=== PATIENT | male | born 1950 | race African-American/Black ===

== ENCOUNTER 2020-06-16 23:12 | Observation (INO) ==
[2020-06-17 00:46] LABS: Basophils % 0.4 % (0.0-0.8); Eosinophils # 0.1 10*3/uL (0.0-0.87); Eosinophils % 2.4 % (0.00-10.9); Hemoglobin 9.8 GM/DL (14.0-18.0); Immature Granulocytes % 0.2 %; Immature Granulocytes Absolute 0.01 #; Lymphocytes # 0.6 10*3/uL (1.4-4.0); Lymphocytes % 13.7 % (21.2-54.2); Mean Corpuscular HGB Conc 32.7 GM/DL (32-36); Mean Corpuscular Volume 78.3 FL (87-102); Mean Platelet Volume 11.5 FL (9.6-12.0); Monocytes % 13.3 % (1.7-12.7); NRBC # 0.03 10*3/uL; Platelet Count 211 T/CUMM (130-400); Red Blood Count 3.83 MC/CUMM (3.8-5.5); Red Cell Distribution Width 15.9 % (9.3-17.3); White Blood Count 4.7 T/CUMM (4-12)
[2020-06-17 00:54] LABS: PT Patient Result 10.6 SECS (9.8-11.9); Partial Thromboplastin Time 27.4 SECS (23.9-33.8)
[2020-06-17 01:01] LABS: Alanine Aminotransferase 27 U/L (16-61); Albumin 3.6 G/DL (3.4-5.0); Alkaline Phosphatase 91 U/L (45-117); Aspartate Amino Transferase 26 U/L (0-37); Bilirubin,Total < 0.39 MG/DL (0.2-1.0); Blood Urea Nitrogen 17 MG/DL (7-18); Calcium 9.1 MG/DL (8.5-10.1); Estimated Glom Filtration Rate 61 ML/MIN; Glucose 134 MG/DL (74-106); Osmolality,Calculated 273.1 MOS/KG (273-304); Total Protein 7.7 G/DL (6.4-8.3)
[2020-06-17] MEDS ORDERED: PANTOPRAZOLE 40 MG VIAL IV STA (01:35)
[2020-06-17] MEDS ORDERED: ONDANSETRON 4 MG/2 ML VIAL IV STA (01:35)
[2020-06-17] MEDS ORDERED: ALUM/MAG/SIMETH/LIDO VISC 1:1 30 ML BOTTLE PO STA (01:35)
[2020-06-17] MEDS ORDERED: MAGNESIUM SULF RIDER 2 GM in PREMIX 1 EACH IV STA (02:13)
[2020-06-17 04:13] LABS: Bilirubin,Urine Negative (Negative); Blood, Urine Negative (Negative); Glucose,Urine (UA) Negative (Negative); Ketones,Urine Negative (Negative); Nitrite,Urine Negative (Negative); Protein,Urine 30 MG/DL; RBC,Urine 2 /HPF (0-4); Squamous Epithelial Cell,Urine Occasional /HPF (0-10); Urine Appearance CLEAR (Clear); Urine Color Colorless (Yellow); Urine Specific Gravity 1.018 (1.001-1.035); Urine Urobilinogen < 2.0 EU/DL (0.2-1.0); WBC,Urine 1 /HPF (0-6)
[2020-06-17] MEDS ORDERED: GLUCAGON 1 MG VIAL IM PRN (05:04)
[2020-06-17] MEDS ORDERED: DOCUSATE SODIUM 100 MG CAPSULE PO PRN (05:04)
[2020-06-17] MEDS ORDERED: ONDANSETRON 4 MG/2 ML VIAL IV PRN (05:04)
[2020-06-17] MEDS ORDERED: DEXTROSE 50% 25 GM/50 ML VIAL IV PRN (05:04)
[2020-06-17] MEDS ORDERED: NICOTINE 21 MG/24 HR PATCH TRANSDERM PRN (05:04)
[2020-06-17] MEDS ORDERED: hydrALAZINE 20 MG/1 ML VIAL IV PRN (05:04)
[2020-06-17] MEDS ORDERED: MORPHINE 4 MG/1 ML VIAL IV PRN (05:04)
[2020-06-17] MEDS ORDERED: ALBUTEROL/IPRATROPIUM 3 ML NEB RESP TX PRN (05:04)
[2020-06-17] MEDS ORDERED: ACETAMINOPHEN 325 MG TABLET PO PRN (05:04)
[2020-06-17] MEDS ORDERED: cefTRIAXone 1,000 MG in SYRINGE 1 EACH IV SCH (05:30)
[2020-06-17] MEDS ORDERED: AZITHROMYCIN INJ 500 MG in SODIUM CHLORIDE 0.9% 250 ML IV SCH (05:30)
[2020-06-17] MEDS ORDERED: NITROGLYCERIN SL 0.4 MG TABLET SL PRN (05:35)
[2020-06-17 06:48] LABS: Risk Ratio 3.04; VLDL CHOLESTEROL 52.8 MG/DL
[2020-06-17] MEDS ORDERED: INFLUENZA VIRUS VACCINE 0.5 ML SYRINGE IM ONE (08:18)
[2020-06-17] MEDS: INSULIN LISPRO 100 UNIT/ML SUBCUT SCH ×4 (08:30→23:15)
[2020-06-17] MEDS: AZITHROMYCIN 250 MG TABLET PO SCH (11:03)
[2020-06-17] MEDS: PANTOPRAZOLE 40 MG TABLET PO SCH (11:03)
[2020-06-17] MEDS: amLODIPine 10 MG TABLET PO SCH (11:04)
[2020-06-17] MEDS: CHLORTHALIDONE 25 MG TABLET PO SCH (11:04)
[2020-06-17] MEDS: carvediloL 3.125 MG TABLET PO SCH ×2 (11:04→21:08)
[2020-06-17] MEDS: cefTRIAXone 1,000 MG in SYRINGE 1 EACH IV SCH (11:05)
[2020-06-18 06:07] LABS: Basophils % 0.4 % (0.0-0.8); Eosinophils # 0.1 10*3/uL (0.0-0.87); Eosinophils % 1.9 % (0.00-10.9); Hematocrit 27.5 VOL% (42.0-52.0); Hemoglobin 8.7 GM/DL (14.0-18.0); Immature Granulocytes % 0.2 %; Immature Granulocytes Absolute 0.01 #; Lymphocytes # 0.4 10*3/uL (1.4-4.0); Lymphocytes % 6.1 % (21.2-54.2); Mean Corpuscular HGB Conc 31.6 GM/DL (32-36); Mean Corpuscular Volume 79.3 FL (87-102); Monocytes % 9.6 % (1.7-12.7); Neutrophils % 81.8 % (38.7-73.9); Platelet Count 191 T/CUMM (130-400); Red Blood Count 3.47 MC/CUMM (3.8-5.5); Red Cell Distribution Width 15.7 % (9.3-17.3); White Blood Count 5.7 T/CUMM (4-12)
[2020-06-18 06:42] LABS: Bilirubin,Total 0.7 MG/DL (0.2-1.0); Calcium 8.6 MG/DL (8.5-10.1); Osmolality,Calculated 282.3 MOS/KG (273-304); Thyroid Stimulating Hormone 1.62 uIU/ml (0.358-3.74); Total Protein 6.9 G/DL (6.4-8.3)
[2020-06-18] MEDS: INSULIN LISPRO 100 UNIT/ML SUBCUT SCH (07:22)
[2020-06-18] MEDS: AZITHROMYCIN 250 MG TABLET PO SCH (09:12)
[2020-06-18] MEDS: PANTOPRAZOLE 40 MG TABLET PO SCH (09:12)
[2020-06-18] MEDS: amLODIPine 10 MG TABLET PO SCH (09:12)
[2020-06-18] MEDS: cefTRIAXone 1,000 MG in SYRINGE 1 EACH IV SCH (09:13)
[2020-06-18] MEDS: carvediloL 3.125 MG TABLET PO SCH (09:13)
[2020-06-18] MEDS: CHLORTHALIDONE 25 MG TABLET PO SCH (09:13)
[2020-06-18] MEDS ORDERED: ASPIRIN EC 81 MG TABLET PO SCH (10:50)
[2020-06-18 11:23] VITALS: BP 156/79
== END 2020-06-18 12:09 | disposition home or self-care (01) ==
LOC: N.ED 23:12 → N.EDINP 23:12 → N.TELES 06-17 07:45
PROVIDERS: ADMIT Family Medicine; ATTEND Family Medicine

== ENCOUNTER 2020-07-01 22:27 | Observation (INO) ==
[2020-07-01] MEDS ORDERED: ASPIRIN 325 MG TABLET PO STA (22:50)
[2020-07-01 23:07] LABS: Basophils % 0.8 % (0.0-0.8); Eosinophils # 0.1 10*3/uL (0.0-0.87); Hematocrit 29.4 VOL% (42.0-52.0); Hemoglobin 9.6 GM/DL (14.0-18.0); Immature Granulocytes % 0.2 %; Immature Granulocytes Absolute 0.01 #; Lymphocytes # 1.3 10*3/uL (1.4-4.0); Lymphocytes % 24.1 % (21.2-54.2); Mean Corpuscular HGB Conc 32.7 GM/DL (32-36); Mean Corpuscular Volume 78.6 FL (87-102); Mean Platelet Volume 10.5 FL (9.6-12.0); Monocytes % 9.5 % (1.7-12.7); NRBC # 0.02 10*3/uL; Neutrophils % 64.4 % (38.7-73.9); Platelet Count 220 T/CUMM (130-400); Red Blood Count 3.74 MC/CUMM (3.8-5.5); Red Cell Distribution Width 16.6 % (9.3-17.3); White Blood Count 5.2 T/CUMM (4-12)
[2020-07-01 23:36] LABS: Alanine Aminotransferase 49 U/L (16-61); Albumin 3.3 G/DL (3.4-5.0); Alkaline Phosphatase 72 U/L (45-117); Aspartate Amino Transferase 90 U/L (0-37); Bilirubin,Total < 0.39 MG/DL (0.2-1.0); Blood Urea Nitrogen 28 MG/DL (7-18); Calcium 8.2 MG/DL (8.5-10.1); Estimated Glom Filtration Rate 71 ML/MIN; Glucose 81 MG/DL (74-106); Total Protein 7.2 G/DL (6.4-8.3)
[2020-07-01] MEDS ORDERED: ASPIRIN EC 325 MG TABLET PO STA (23:39)
[2020-07-01] MEDS ORDERED: NITROGLYCERIN SL 0.4 MG TABLET SL STA (23:39)
[2020-07-01 23:43] LABS: PT Patient Result 10.7 SECS (9.8-11.9)
[2020-07-01] MEDS ORDERED: HALOPERIDOL 5 MG/ML AMP ONE (23:43)
[2020-07-02 00:21] LABS: Bacteria,Urine Occasional /HPF (Few); Bilirubin,Urine Negative (Negative); Blood, Urine Small mg/dL (Negative); Glucose,Urine (UA) Negative (Negative); Hyaline Casts,Urine 3 /LPF (0-3); Ketones,Urine Negative (Negative); Mucus,Urine Occasional /LPF (Occasional); Nitrite,Urine Negative (Negative); Protein,Urine 100 MG/DL; RBC,Urine 2 /HPF (0-4); Squamous Epithelial Cell,Urine Occasional /HPF (0-10); Urine Appearance CLEAR (Clear); Urine Color Yellow (Yellow); Urine Specific Gravity 1.014 (1.001-1.035); Urine Urobilinogen < 2.0 EU/DL (0.2-1.0); WBC,Urine 1 /HPF (0-6)
[2020-07-02] MEDS ORDERED: ONDANSETRON 4 MG/2 ML VIAL IV PRN (01:48)
[2020-07-02] MEDS ORDERED: DEXTROSE 50% 25 GM/50 ML VIAL IV PRN (01:48)
[2020-07-02] MEDS ORDERED: DOCUSATE SODIUM 100 MG CAPSULE PO PRN (01:48)
[2020-07-02] MEDS ORDERED: GLUCAGON 1 MG VIAL IM PRN (01:48)
[2020-07-02] MEDS ORDERED: MORPHINE 4 MG/1 ML VIAL IV PRN (01:48)
[2020-07-02] MEDS ORDERED: ACETAMINOPHEN 325 MG TABLET PO PRN (02:00)
[2020-07-02] MEDS ORDERED: NITROGLYCERIN SL 0.4 MG TABLET SL PRN ×2 (02:03→15:35)
[2020-07-02] MEDS ORDERED: DEXTROSE 50% 25 GM/50 ML SYRINGE IV PRN (02:12)
[2020-07-02] MEDS ORDERED: LORazepam 2 MG/1 ML VIAL IV PRN ×2 (02:21)
[2020-07-02] MEDS ORDERED: ALBUTEROL/IPRATROPIUM 3 ML NEB RESP TX PRN (02:24)
[2020-07-02] MEDS ORDERED: NICOTINE 21 MG/24 HR PATCH TRANSDERM PRN (02:25)
[2020-07-02 04:24] LABS: Basophils % 0.7 % (0.0-0.8); Eosinophils # 0.1 10*3/uL (0.0-0.87); Eosinophils % 1.2 % (0.00-10.9); Hematocrit 29.7 VOL% (42.0-52.0); Hemoglobin 9.4 GM/DL (14.0-18.0); Immature Granulocytes % 0.5 %; Immature Granulocytes Absolute 0.02 #; Lymphocytes # 0.8 10*3/uL (1.4-4.0); Lymphocytes % 19.3 % (21.2-54.2); Mean Corpuscular HGB Conc 31.6 GM/DL (32-36); Mean Platelet Volume 10.1 FL (9.6-12.0); Monocytes % 10.5 % (1.7-12.7); NRBC # 0.02 10*3/uL; Neutrophils % 67.8 % (38.7-73.9); Platelet Count 236 T/CUMM (130-400); Red Blood Count 3.76 MC/CUMM (3.8-5.5); Red Cell Distribution Width 16.7 % (9.3-17.3); White Blood Count 4.1 T/CUMM (4-12)
[2020-07-02 04:44] LABS: Calcium 8.2 MG/DL (8.5-10.1); Osmolality,Calculated 289.8 MOS/KG (273-304)
[2020-07-02] MEDS: PANTOPRAZOLE 40 MG TABLET PO SCH (08:55)
[2020-07-02] MEDS: INSULIN LISPRO 100 UNIT/ML SUBCUT SCH ×4 (08:58→22:41)
[2020-07-02] MEDS: hydrALAZINE 20 MG/1 ML VIAL IV PRN ×2 (12:03→22:47)
[2020-07-02] MEDS: carvediloL 3.125 MG TABLET PO SCH ×2 (13:09→22:41)
[2020-07-02] MEDS ORDERED: CHLORTHALIDONE 25 MG TABLET PO ONE (15:38)
[2020-07-02] MEDS ORDERED: lisinopriL 20 MG TABLET PO ONE (15:39)
[2020-07-02] MEDS ORDERED: TERAZOSIN 5 MG CAPSULE PO SCH (21:00)
[2020-07-02] MEDS: GABAPENTIN 400 MG CAPSULE PO SCH (22:40)
[2020-07-02] MEDS: APIXABAN 5 MG TABLET PO SCH (22:47)
[2020-07-03 07:48] VITALS: BP 140/67
[2020-07-03] MEDS: INSULIN LISPRO 100 UNIT/ML SUBCUT SCH (08:02)
[2020-07-03 08:09] LABS: Basophils % 0.7 % (0.0-0.8); Eosinophils # 0.1 10*3/uL (0.0-0.87); Hematocrit 28.5 VOL% (42.0-52.0); Hemoglobin 9.2 GM/DL (14.0-18.0); Immature Granulocytes Absolute 0.03 #; Lymphocytes # 0.4 10*3/uL (1.4-4.0); Lymphocytes % 11.9 % (21.2-54.2); Mean Corpuscular HGB Conc 32.3 GM/DL (32-36); Mean Platelet Volume 10.6 FL (9.6-12.0); Monocytes % 10.6 % (1.7-12.7); Neutrophils % 73.8 % (38.7-73.9); Platelet Count 184 T/CUMM (130-400); Red Cell Distribution Width 16.2 % (9.3-17.3)
[2020-07-03 08:20] LABS: Albumin 2.9 G/DL (3.4-5.0); Bilirubin,Total 0.6 MG/DL (0.2-1.0); Calcium 8.5 MG/DL (8.5-10.1); Total Protein 6.9 G/DL (6.4-8.3)
[2020-07-03] MEDS ORDERED: allopurinoL 100 MG TABLET PO SCH (09:00)
[2020-07-03] MEDS ORDERED: FERROUS SULFATE 325 MG TABLET PO SCH (09:00)
[2020-07-03] MEDS ORDERED: ATORVASTATIN 80 MG TABLET PO SCH (09:00)
[2020-07-03] MEDS ORDERED: lisinopriL 20 MG TABLET PO SCH (09:00)
[2020-07-03] MEDS ORDERED: MAGNESIUM OXIDE 400 MG TABLET PO SCH (09:00)
[2020-07-03] MEDS ORDERED: ASPIRIN EC 81 MG TABLET PO SCH (09:00)
[2020-07-03] MEDS ORDERED: CHLORTHALIDONE 25 MG TABLET PO SCH (09:00)
[2020-07-03] MEDS: GABAPENTIN 400 MG CAPSULE PO SCH (09:15)
[2020-07-03] MEDS: PANTOPRAZOLE 40 MG TABLET PO SCH (09:16)
[2020-07-03] MEDS: APIXABAN 5 MG TABLET PO SCH (09:17)
[2020-07-03] MEDS: carvediloL 3.125 MG TABLET PO SCH (09:17)
== END 2020-07-03 12:05 | disposition home or self-care (01) ==
LOC: N.ED 22:27 → N.EDINP 22:27 → N.TELES 07-02 04:07
PROVIDERS: ADMIT Internal Medicine; ATTEND Internal Medicine